=== PATIENT | male | born 1985 | race African-American/Black ===

== ENCOUNTER 2017-10-03 20:43 | Emergency (ER) | payer SELFPAY ==
[~2017-10-03] VITALS: Ht 177.8 cm; Wt 84.1 kg
[~2017-10-03 20:43] MED LIST: IBUP-232 PO
[2017-10-03 20:46] VITALS: BP 122/71; PULSE 93; RESP 16; TEMP 98.1; O2SAT 96
[2017-10-03] MEDS ORDERED: ERYTOIN10 LEFT EYE (22:58)
--- NOTE | 2017-10-03 23:01 | PD ---
HPI Chief Complaint: Eye Problems/Injury Time Seen by Provider: 22:43 Travel History International Travel<30 days: No Contact w/Intl Traveler<30days: No Traveled to known affect area: No History of Present Illness HPI 32-year-old black male presents to emergency department for evaluation of a possible pink eye. He states that his left eye is been red, injected as well as having some discharge and matting. He used a leftover prescription that he had for his child for pinkeye. He states that it started to improve. Patient states that symptoms started on Monday. 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 Her mild. No diplopia. No photophobia. No foreign body sensation. PFSH Past Medical History Asthma: Yes Respiratory: Yes (asthma) Past Surgical History Surgical History: No Previous Surgery Social History Alcohol Use: No Tobacco Use: Yes (LESS THAN A PACK A WEEK) Substance Use: No Allergies-Medications (Allergen,Severity, Reaction): Coded Allergies: No Known Allergies (Verified , 02/10/15) Reported Meds & Prescriptions Reported Meds & Active Scripts Active Erythromycin Opth Oint 5 Mg/Gm Oint 1 Applic LEFT EYE QID 7 Days Review of Systems General / Constitutional: No: Fever Eyes: Positive: Drainage, Redness, No: Diploplia, Blurred Vision, Photophobia, Foreign Body Sensation, Pain, Tearing, Visual changes HENT: No: Headaches Cardiovascular: No: Chest Pain or Discomfort Respiratory: No: Shortness of Breath Gastrointestinal: No: Abdominal Pain Genitourinary: No: Dysuria Musculoskeletal: No: Pain Skin: No Rash Neurologic: No: Weakness Psychiatric: No: Depression Endocrine: No: Polydipsia Hematologic/Lymphatic: No: Easy Bruising Physical Exam Narrative GENERAL: This is a well-nourished, well-developed patient, in no apparent distress. SKIN: No rashes, ecchymoses or lesions. Warm and dry. HEAD: Atraumatic. Normocephalic. EYES: PERRL, EOMI, no discharge or injection in the right eye. No scleral icterus. The left eye is slightly injected. No foreign body seen. EARS: Clear NOSE: Nasal turbinates appear normal. THROAT: Mucosa pink and moist. Airway patent. NECK: Trachea midline. supple, moves head freely. LUNGS: Clear to auscultation. CV: Regular in rhythm. ABDOMEN: Soft nontender. EXT: No clubbing cyanosis or edema. Data Data Last Documented VS Vital Signs Date Time Temp Pulse Resp B/P (MAP) Pulse Ox O2 Delivery O2 Flow Rate FiO2 10/03/17 20:46 98.1 93 16 122/71 (88) 96 MDM Medical Decision Making Medical Screen Exam Complete: Yes Emergency Medical Condition: Yes Medical Record Reviewed: Yes Differential Diagnosis MDM: High Differential diagnoses: Acute conjunctivitis (bacterial, viral, allergic, traumatic), glaucoma, iritis, traumatic globe injury, foreign body, corneal abrasion, corneal ulcer, diabetic retinopathy, photokeratitis, herpes keratitis , CMV retinitis Narrative Course This is conjunctivitis Diagnosis Primary Impression: conjunctivitis Departure Forms: Tests/Procedures, Work Release Special Instructions: No work 1-2 days. Additional Instructions: Rest. Wash eyelashes with baby shampoo 3 times daily. Warm compresses. Erythromycin ointment. Followup with an eye doctor in one week. Follow-up with a medical doctor one week. Return to the ER if any problems. Med/Other Pt SpecificInfo: Prescription(s) given Scripts Erythromycin Opth Oint (Erythromycin Opth Oint) 5 Mg/Gm Oint 1 APPLIC LEFT EYE QID for Infection for 7 Days, #1 TUBE 0 Refills Prov: Asia Olson MD 10/03/17 Disposition: 01 DISCHARGE HOME Condition: Stable Scar Brenner Oct 03, 2017 23:01
== END 2017-10-03 23:27 | disposition home or self-care (01) ==
LOC: NEPD 20:43
DX: H10.9 Unspecified conjunctivitis (principal)
CPT/HCPCS: 99283